=== PATIENT | female | born 2005 | race Caucasian/White ===

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

== ENCOUNTER → 2024-01-06 08:04 | Outpatient (REF) | payer OTHER, SELFPAY | LOC: RADI 08:04 | PROVIDERS: ATTENDING PHYSICIAN Surgery; FAMILY PHYSICIAN Pediatrics | DX: Z46.82 Encounter for fitting and adjustment of non-vascular catheter (principal); K65.1 Peritoneal abscess | CPT/HCPCS: 49424; 76080 ==